=== PATIENT | male | born 1995 | race Caucasian/White ===

== ENCOUNTER 2020-09-02 21:31 | Emergency (ER) | payer SELFPAY | END 2020-09-02 22:50 | disposition left against medical advice (07) | LOC: ER1 21:31 | DX: Z53.21 Procedure and treatment not carried out due to patient leaving prior to being seen by health care provider (principal) ==

== ENCOUNTER 2021-03-23 18:26 | Emergency (ER) | payer SELFPAY | END 2021-03-23 19:56 | disposition home or self-care (01) | LOC: ER1 18:26 | DX: R51.9 Headache, unspecified (principal); Z20.822 Contact with and (suspected) exposure to COVID-19 | CPT/HCPCS: 99283; U0003 ==

== ENCOUNTER 2021-04-29 03:58 | Emergency (ER) | payer OTHER ==
[2021-04-29 04:41] LABS: HEMOGLOBIN 16.7 gm/dl (14.0-17.5); RED BLOOD COUNT 5.13 M/UL (4.20-5.50); WHITE BLOOD COUNT 9.9 K/UL (4.5-11.0)
[2021-04-29 05:03] LABS: BUN/CREATININE RATIO 17 (0-10)
[2021-04-29] MEDS ORDERED: OMNICEF 300 MG300 MG PO (08:36)
[2021-04-29] MEDS ORDERED: IBUPROFEN600 MG PO (08:36)
== END 2021-04-29 08:41 | disposition home or self-care (01) ==
LOC: ER1 03:58
PROVIDERS: Family Medicine
DX: N43.3 Hydrocele, unspecified (principal); L72.0 Epidermal cyst; F17.200 Nicotine dependence, unspecified, uncomplicated
CPT/HCPCS: 76870; 80053; 81001; 83690; 85025; 99284